=== PATIENT | female | born 1980 | race Caucasian/White ===

== ENCOUNTER 2018-08-27 07:53 | Inpatient (IN) | payer OTHER, BC ==
[~2018-08-27 07:53] MED LIST: CEFAZOLIN 1 GM INJ; DESFLURANE 15 MIN; SUCCINYLCHOLINE CHLORIDE 100 MG/5 ML SYG IV
[2018-08-27] MEDS: TRANEXAMIC ACID 1,000 MG in DEXTROSE 5% 100 ML IVPB (08:00)
[2018-08-27] MEDS: SOD CHLORIDE 0.9% 100 ML, TRANEXAMIC ACID 3,000 MG IRR (08:00)
[2018-08-27] MEDS: CEFAZOLIN 2 GM/50 ML (PMX) 50 ML IVPB (08:00)
[2018-08-27] MEDS: GABAPENTIN 300 MG CAP PO ×2 (08:40→22:21)
[2018-08-27] MEDS ORDERED: GLYCOPYRROLATE 0.4 MG INJ (08:41)
[2018-08-27] MEDS: DEXAMETHASONE 1 MG TAB PO (08:41)
[2018-08-27] MEDS ORDERED: NEOSTIGMINE 3 MG/3 ML SYRINGE (08:41)
[2018-08-27] MEDS ORDERED: DEXAMETHASONE 4 MG/ML 5 ML INJ (08:41)
[2018-08-27] MEDS ORDERED: ONDANSETRON 4 MG INJ (08:41)
[2018-08-27] MEDS ORDERED: FENTAnyl 50 MCG/ML VIAL (08:41)
[2018-08-27] MEDS ORDERED: MIDAZOLAM 1 MG/ML 2 ML INJ (08:41)
[2018-08-27] MEDS ORDERED: ROCURONIUM 50 MG INJ (08:41)
[2018-08-27] MEDS ORDERED: PROPOFOL 20 ML (08:41)
[2018-08-27] MEDS ORDERED: CEFAZOLIN 1 GM INJ (08:41)
[2018-08-27] MEDS ORDERED: ALBUTEROL 0.083% (NEB) 2.5 MG/3 ML AMP HHN (09:30)
[2018-08-27] MEDS ORDERED: FENTAnyl 50 MCG/ML VIAL IV ×2 (09:30)
[2018-08-27] MEDS ORDERED: DIPHENHYDRAMINE 50 MG INJ IV ×2 (09:30→11:00)
[2018-08-27] MEDS ORDERED: hydrALAzine 20 MG INJ IV (09:30)
[2018-08-27] MEDS ORDERED: IPRATROPIUM (NEB) 0.5 MG/2.5 ML AMP HHN (09:30)
[2018-08-27] MEDS ORDERED: OXYCODONE/ACETAMINOPHEN (5/325) TAB PO ×2 (09:30)
[2018-08-27] MEDS ORDERED: EPHEDrine SULFATE 50 MG/5 ML SYG IV (09:30)
[2018-08-27] MEDS ORDERED: HYDROmorphONE 1 MG/5 ML IV SYRINGE IV (09:30)
[2018-08-27] MEDS ORDERED: MIDAZOLAM 1 MG/ML 2 ML INJ IV (09:30)
[2018-08-27] MEDS ORDERED: LABETALOL HCL 20MG INJ IV (09:30)
[2018-08-27] MEDS ORDERED: TRIMETHOBENZAMIDE 100 MG/ML VIAL IM (09:30)
[2018-08-27] MEDS ORDERED: POLYMYXIN/BACITRACIN 1L IRRIG (09:31)
[2018-08-27] MEDS: BUPIVACAINE 0.5% (SDV) 30 ML, morphine SULFATE (PF) 8 MG, EPINEPHrine 0.3 MG, KETOROLAC... IRR (10:30)
[2018-08-27] MEDS: POLYMYXIN/BACITRACIN 1L IRRIG IRR ×2 (10:30)
[2018-08-27] MEDS ORDERED: SUGAMMADEX SODIUM 200 MG/2 ML VIAL IV (10:42)
[2018-08-27] MEDS ORDERED: NACL 0.9% 3 ML SYG IV (11:00)
[2018-08-27] MEDS ORDERED: MAGNESIUM HYDROXIDE 30ML CUP PO (11:00)
[2018-08-27] MEDS ORDERED: ZOLPIDEM 5 MG TAB PO (11:00)
[2018-08-27] MEDS: MEPERIDINE 25 MG INJ IV (11:35)
[2018-08-27] MEDS: ONDANSETRON 4 MG INJ IV ×2 (11:36→18:21)
[2018-08-27] MEDS: TRANEXAMIC ACID 1,000 MG in DEXTROSE 5% 100 ML IV (11:37)
[2018-08-27] MEDS: HYDROmorphONE 1 MG/5 ML IV SYRINGE IV ×2 (11:46→11:52)
[2018-08-27] MEDS: CEFAZOLIN 1 GM/50 ML (PMX) 50 ML IVPB ×2 (11:47→17:57)
[2018-08-27] MEDS: ACETAMINOPHEN 1000MG/100ML IV 100 ML IVPB ×2 (11:59→18:02)
[2018-08-27] MEDS: FENTAnyl 50 MCG/ML VIAL IV (12:53)
[2018-08-27] MEDS: DEXAMETHASONE 2 MG TAB PO ×2 (14:14→17:56)
[2018-08-27] MEDS: HYDROmorphONE 1 MG/ML SYG IV ×3 (14:14→22:25)
[2018-08-27] MEDS: LACTATED RINGER'S 1,000 ML IV (14:17)
[2018-08-27] MEDS: oxyCODONE 5 MG TAB PO ×2 (16:45→20:46)
[2018-08-27] MEDS ORDERED: NEOMYC/POLYMYX/BACIT 0.9 GM OINT (16:48)
[2018-08-27] MEDS: AMITRIPTYLINE 25 MG TAB PO (22:21)
[2018-08-27] MEDS: SENNA/DOCUSATE NA (8.6MG/50MG) TAB PO (22:21)
[2018-08-27] MEDS: traZODone 50 MG TAB PO (22:21)
[2018-08-27] MEDS: ENOXAPARIN 30 MG/0.3 ML SYG SC (22:31)
[2018-08-28] MEDS: oxyCODONE 5 MG TAB PO ×5 (00:38→20:18)
[2018-08-28] MEDS: DEXAMETHASONE 2 MG TAB PO ×2 (00:38→05:45)
[2018-08-28] MEDS: LACTATED RINGER'S 1,000 ML IV ×3 (02:22→16:39)
[2018-08-28] MEDS: HYDROmorphONE 1 MG/ML SYG IV ×2 (02:22→23:52)
[2018-08-28] MEDS: CEFAZOLIN 1 GM/50 ML (PMX) 50 ML IVPB (03:03)
[2018-08-28] MEDS: ACETAMINOPHEN 1000MG/100ML IV 100 ML IVPB (03:42)
[2018-08-28] MEDS: ASPIRIN (EC) 325 MG TAB PO (09:03)
[2018-08-28] MEDS: SENNA/DOCUSATE NA (8.6MG/50MG) TAB PO ×2 (09:03→21:00)
[2018-08-28] MEDS: ENOXAPARIN 30 MG/0.3 ML SYG SC ×2 (09:04→20:20)
[2018-08-28] MEDS: ONDANSETRON 4 MG INJ IV (09:51)
[2018-08-28] MEDS: ALBUTEROL/IPRATROPIUM (NEB) 3 ML AMP HHN ×2 (17:46→20:57)
[2018-08-28] MEDS: traZODone 50 MG TAB PO (20:15)
[2018-08-28] MEDS: AMITRIPTYLINE 25 MG TAB PO (20:16)
[2018-08-28] MEDS: GABAPENTIN 300 MG CAP PO (20:16)
[2018-08-29] MEDS: ALBUTEROL/IPRATROPIUM (NEB) 3 ML AMP HHN ×5 (01:48→19:34)
[2018-08-29] MEDS: LACTATED RINGER'S 1,000 ML IV ×2 (02:39→12:39)
[2018-08-29 05:29] LABS: ADD MAN DIFF? NO
[2018-08-29 05:34] LABS: WHITE BLOOD COUNT 15.6 10^3/ul (4.8-10.8)
[2018-08-29 05:34] LABS: BASOPHILS % 0.1 % (0.0-2.0); HEMATOCRIT 38.9 % (37.0-47.0); HEMOGLOBIN 12.1 g/dl (12.0-16.0); LYMPHOCYTES # 1.6 10^3/ul (0.8-2.9); MEAN CORPUSCULAR HEMOGLOBIN 28.1 pg (29.0-33.0); MEAN CORPUSCULAR HGB CONC 31.1 g/dl (32.0-37.0); MEAN CORPUSCULAR VOLUME 90.3 fl (82.0-101.0); MEAN PLATELET VOLUME 9.5 fl (7.4-10.4); MONOCYTE # 1.2 10^3/ul (0.3-0.9); MONOCYTES % 7.7 % (0.0-11.0); NEUTROPHIL # 12.7 10^3/ul (1.6-7.5); NEUTROPHILS % 81.5 % (39.0-77.0); PLATELET COUNT 247 10^3/UL (140-415); RED BLOOD COUNT 4.31 10^6/ul (4.20-5.40); RED CELL DISTRIBUTION WIDTH 13.1 % (11.5-14.5)
[2018-08-29] MEDS: HYDROmorphONE 1 MG/ML SYG IV ×2 (05:43→21:09)
[2018-08-29 06:05] LABS: ANION GAP 5 (5-13); BLOOD UREA NITROGEN 20 mg/dl (7-20); CARBON DIOXIDE 31 mmol/L (21-31); CHLORIDE 104 mmol/L (97-110); CREATININE 0.96 mg/dl (0.44-1.00); Estimated GFR > 60 mL/min (>60); GLUCOSE 197 mg/dl (70-220); MAGNESIUM 2.4 mg/dl (1.7-2.5); PHOSPHORUS 3.3 mg/dl (2.5-4.9); POTASSIUM 5.8 mmol/L (3.5-5.1); SODIUM 140 mmol/L (135-144)
[2018-08-29] MEDS: ASPIRIN (EC) 325 MG TAB PO (08:01)
[2018-08-29] MEDS: SENNA/DOCUSATE NA (8.6MG/50MG) TAB PO ×2 (08:01→21:16)
[2018-08-29] MEDS: oxyCODONE 5 MG TAB PO ×3 (08:01→18:20)
[2018-08-29] MEDS: ENOXAPARIN 30 MG/0.3 ML SYG SC ×2 (08:06→21:15)
[2018-08-29 08:24] LABS: AADO2 Arterial 33.1 mmHg (7.0-24.0); Allen Test ACCEPTAB; Arterial Base Excess -2.1 mmol/L (-3.0-3); Arterial COHb 0.4 % (0.0-3.0); Arterial Fraction of Oxyhgb 86.6 % (93.0-99.0); Arterial HCO3 25.2 mmol/L (22.0-26.0); Arterial MetHb 0.1 % (0.0-1.5); Arterial pCO2 53.7 mmhg (35-45); MODE ROOM AIR; Site Right Radial
[2018-08-29 11:28] LABS: ANION GAP 6 (5-13); BLOOD UREA NITROGEN 18 mg/dl (7-20); CALCIUM 8.6 mg/dl (8.4-10.2); CARBON DIOXIDE 30 mmol/L (21-31); CHLORIDE 104 mmol/L (97-110); Estimated GFR > 60 mL/min (>60); GLUCOSE 210 mg/dl (70-220); POTASSIUM 4.9 mmol/L (3.5-5.1); SODIUM 140 mmol/L (135-144)
[2018-08-29] MEDS: METHYLPREDNISOLONE 40 MG INJ IV ×2 (15:33→21:11)
[2018-08-29] MEDS: AZITHROMYCIN 250 MG in SOD CHLORIDE 0.9% 250 ML IVPB (15:33)
[2018-08-29] MEDS: GABAPENTIN 300 MG CAP PO (21:16)
[2018-08-29] MEDS: traZODone 50 MG TAB PO (21:16)
[2018-08-29] MEDS: AMITRIPTYLINE 25 MG TAB PO (21:16)
[2018-08-29] MEDS: MAGNESIUM HYDROXIDE 30ML CUP PO (21:17)
[2018-08-30] MEDS: HYDROmorphONE 1 MG/ML SYG IV ×2 (04:05→09:14)
[2018-08-30] MEDS: METHYLPREDNISOLONE 40 MG INJ IV ×3 (06:00→21:10)
[2018-08-30] MEDS: oxyCODONE 5 MG TAB PO ×3 (06:00→21:15)
[2018-08-30] MEDS: ALBUTEROL/IPRATROPIUM (NEB) 3 ML AMP HHN ×5 (08:53→20:12)
[2018-08-30] MEDS: SENNA/DOCUSATE NA (8.6MG/50MG) TAB PO ×2 (09:10→21:05)
[2018-08-30] MEDS: ASPIRIN (EC) 325 MG TAB PO (09:10)
[2018-08-30] MEDS: ENOXAPARIN 30 MG/0.3 ML SYG SC ×2 (09:11→21:08)
[2018-08-30] MEDS: AZITHROMYCIN 250 MG in SOD CHLORIDE 0.9% 250 ML IVPB (16:05)
[2018-08-30] MEDS: AMITRIPTYLINE 25 MG TAB PO (21:05)
[2018-08-30] MEDS: traZODone 50 MG TAB PO (21:05)
[2018-08-30] MEDS: MAGNESIUM HYDROXIDE 30ML CUP PO (21:05)
[2018-08-30] MEDS: GABAPENTIN 300 MG CAP PO (21:06)
[2018-08-31] MEDS: HYDROmorphONE 1 MG/ML SYG IV (00:57)
[2018-08-31] MEDS: METHYLPREDNISOLONE 40 MG INJ IV ×2 (05:50→14:37)
[2018-08-31] MEDS: oxyCODONE 5 MG TAB PO ×3 (05:54→21:17)
[2018-08-31] MEDS: ALBUTEROL/IPRATROPIUM (NEB) 3 ML AMP HHN ×5 (07:59→20:56)
[2018-08-31] MEDS: ASPIRIN (EC) 325 MG TAB PO (08:47)
[2018-08-31] MEDS: SENNA/DOCUSATE NA (8.6MG/50MG) TAB PO ×2 (08:48→21:09)
[2018-08-31] MEDS: ENOXAPARIN 30 MG/0.3 ML SYG SC ×2 (08:50→21:10)
[2018-08-31 10:33] LABS: ADD MAN DIFF? NO
[2018-08-31 10:35] LABS: WHITE BLOOD COUNT 12.2 10^3/ul (4.8-10.8)
[2018-08-31 10:35] LABS: BASOPHILS % 0.1 % (0.0-2.0); HEMATOCRIT 38.7 % (37.0-47.0); HEMOGLOBIN 12.4 g/dl (12.0-16.0); LYMPHOCYTES # 1.1 10^3/ul (0.8-2.9); LYMPHOCYTES % 8.9 % (15.0-51.0); MEAN CORPUSCULAR HEMOGLOBIN 28.6 pg (29.0-33.0); MEAN CORPUSCULAR VOLUME 89.2 fl (82.0-101.0); MEAN PLATELET VOLUME 9.4 fl (7.4-10.4); MONOCYTE # 0.7 10^3/ul (0.3-0.9); MONOCYTES % 5.5 % (0.0-11.0); NEUTROPHIL # 10.2 10^3/ul (1.6-7.5); PLATELET COUNT 245 10^3/UL (140-415); RED BLOOD COUNT 4.34 10^6/ul (4.20-5.40); RED CELL DISTRIBUTION WIDTH 13.2 % (11.5-14.5)
[2018-08-31 11:02] LABS: ALANINE AMINOTRANSFERASE 30 IU/L (13-69); ALBUMIN 3.7 g/dl (3.3-4.9); ALBUMIN/GLOBULIN RATIO 1.32; ALKALINE PHOSPHATASE 66 IU/L (42-121); ANION GAP 9 (5-13); ASPARTATE AMINO TRANSFERASE 27 IU/L (15-46); BILIRUBIN,INDIRECT 0.1 mg/dl (0-1.1); BILIRUBIN,TOTAL 0.1 mg/dl (0.2-1.3); BLOOD UREA NITROGEN 17 mg/dl (7-20); CALCIUM 8.7 mg/dl (8.4-10.2); CARBON DIOXIDE 29 mmol/L (21-31); CHLORIDE 102 mmol/L (97-110); CREATININE 0.57 mg/dl (0.44-1.00); Estimated GFR > 60 mL/min (>60); GLUCOSE 290 mg/dl (70-220); POTASSIUM 4.2 mmol/L (3.5-5.1); SODIUM 140 mmol/L (135-144); TOTAL PROTEIN 6.5 g/dl (6.1-8.1)
[2018-08-31] MEDS: AZITHROMYCIN 250 MG in SOD CHLORIDE 0.9% 250 ML IVPB (14:37)
[2018-08-31] MEDS: AMITRIPTYLINE 25 MG TAB PO (21:09)
[2018-08-31] MEDS: traZODone 50 MG TAB PO (21:09)
[2018-08-31] MEDS: GABAPENTIN 300 MG CAP PO (21:09)
[2018-08-31] MEDS: MAGNESIUM HYDROXIDE 30ML CUP PO (21:09)
[2018-09-01 06:20] LABS: ANION GAP 2 (5-13); BLOOD UREA NITROGEN 19 mg/dl (7-20); CALCIUM 8.5 mg/dl (8.4-10.2); CARBON DIOXIDE 31 mmol/L (21-31); CHLORIDE 106 mmol/L (97-110); CREATININE 0.57 mg/dl (0.44-1.00); Estimated GFR > 60 mL/min (>60); GLUCOSE 229 mg/dl (70-220); POTASSIUM 4.5 mmol/L (3.5-5.1); SODIUM 139 mmol/L (135-144)
[2018-09-01] MEDS ORDERED: CEPASTAT LOZENGE MT (07:00)
[2018-09-01] MEDS: ALBUTEROL/IPRATROPIUM (NEB) 3 ML AMP HHN ×5 (07:51→19:51)
[2018-09-01] MEDS: SENNA/DOCUSATE NA (8.6MG/50MG) TAB PO ×2 (09:19→20:13)
[2018-09-01] MEDS: predniSONE 20 MG TAB PO (09:19)
[2018-09-01] MEDS: ASPIRIN (EC) 325 MG TAB PO (09:20)
[2018-09-01] MEDS: metFORMIN 500 MG TAB PO ×2 (09:23→17:49)
[2018-09-01] MEDS: ENOXAPARIN 30 MG/0.3 ML SYG SC ×2 (09:23→20:16)
[2018-09-01] MEDS: AZITHROMYCIN 250 MG in SOD CHLORIDE 0.9% 250 ML IVPB (15:00)
[2018-09-01 15:36] LABS: AADO2 Arterial 42.9 mmHg (7.0-24.0); Allen Test ACCEPTAB; Arterial Base Excess 4.7 mmol/L (-3.0-3); Arterial Blood Gas Oxygen Sat 90.6 mmHG (95.0-98.0); Arterial COHb 0 % (0.0-3.0); Arterial Fraction of Oxyhgb 90.3 % (93.0-99.0); Arterial HCO3 28.7 mmol/L (22.0-26.0); Arterial MetHb 0.3 % (0.0-1.5); Arterial pCO2 40.5 mmhg (35-45); MODE ROOM AIR; Site Right Radial
[2018-09-01] MEDS: oxyCODONE 5 MG TAB PO (17:48)
[2018-09-01] MEDS: MAGNESIUM HYDROXIDE 30ML CUP PO (20:13)
[2018-09-01] MEDS: AMITRIPTYLINE 25 MG TAB PO (20:13)
[2018-09-01] MEDS: GABAPENTIN 300 MG CAP PO (20:14)
[2018-09-01] MEDS: traZODone 50 MG TAB PO (20:14)
[2018-09-02] MEDS: oxyCODONE 5 MG TAB PO ×3 (06:38→16:42)
[2018-09-02] MEDS: ALBUTEROL/IPRATROPIUM (NEB) 3 ML AMP HHN ×3 (08:17→16:55)
[2018-09-02] MEDS: predniSONE 20 MG TAB PO (08:23)
[2018-09-02] MEDS: ASPIRIN (EC) 325 MG TAB PO (08:24)
[2018-09-02] MEDS: SENNA/DOCUSATE NA (8.6MG/50MG) TAB PO (08:24)
[2018-09-02] MEDS: metFORMIN 500 MG TAB PO (08:24)
[2018-09-02] MEDS: ENOXAPARIN 30 MG/0.3 ML SYG SC (08:27)
[2018-09-02] MEDS: AZITHROMYCIN 250 MG in SOD CHLORIDE 0.9% 250 ML IVPB (14:24)
== END 2018-09-02 17:00 | disposition home or self-care (01) | DRG 501 ==
LOC: SDS 07:53 → REC 10:42 → MS1 13:40
PROC: 0LQK0ZZ Repair Left Hip Tendon, Open Approach (ICD-10-PCS; principal; 2018-08-27 09:40)
PROC: 0MBM0ZZ Excision of Left Hip Bursa and Ligament, Open Approach (ICD-10-PCS; 2018-08-27 09:40)
PROC: 01NF0ZZ Release Sciatic Nerve, Open Approach (ICD-10-PCS; 2018-08-27 09:40)
DX: M70.62 Trochanteric bursitis, left hip (principal); Z68.43 Body mass index [BMI] 50.0-59.9, adult; J98.11 Atelectasis; S76.012A Strain of muscle, fascia and tendon of left hip, initial encounter; G58.8 Other specified mononeuropathies; E66.01 Morbid (severe) obesity due to excess calories; E88.81 Metabolic syndrome and other insulin resistance; G47.33 Obstructive sleep apnea (adult) (pediatric); M54.32 Sciatica, left side; R09.02 Hypoxemia; X58.XXXA Exposure to other specified factors, initial encounter
CPT/HCPCS: 36600; 71045; 72170; 80048; 80053; 82803; 83735; 84100; 84703; 85025; 86999; 93970; 94640; 94664; 97116; 97161; 97530